=== PATIENT | female | born 1990 | race African-American/Black ===

== ENCOUNTER 2021-12-03 14:05 | Emergency (ER) | payer MEDICAID, SELFPAY ==
[2021-12-03 14:06] VITALS: BP 153/98; PULSE 74; RESP 18; TEMP 36.9; O2SAT 98; BMI 36.9
--- NOTE | 2021-12-03 14:30 | RAD_ITS ---
STUDY: X-RAY - LEFT ELBOW REASON FOR EXAM: Female, 31 years old. INJURY TECHNIQUE: 3 view(s) of the elbow. COMPARISON: None. FINDINGS: Normal visualized humerus, radius and ulna. Normal radiocapitellar and ulnotrochlear articulations. The soft tissue structures are unremarkable. RAD/Elbow min 3 Views IMPRESSION: Normal x-ray examination of the elbow. Electronically Signed: Justino Best MD at 14:50 EDT ,
--- NOTE | 2021-12-03 15:22 | CT_ITS ---
STUDY: CT BRAIN WITHOUT CONTRAST REASON FOR EXAM: Female, 31 years old. trauma, headache RADIATION DOSAGE (If Supplied By Facility): CTDIvol = ( 44.99 ) mGy, DLP = ( 812.98 ) mGycm TECHNIQUE: Transaxial CT imaging of the brain was performed without administration of intravenous contrast material. Individualized dose optimization techniques were used for this CT. COMPARISON: No relevant priors. FINDINGS: Normal soft tissue structures. Normal calvarium. Normal size ventricles and extra-axial spaces for the patient''s age. Normal white matter tracts of the cerebral hemispheres. Normal basal ganglia and thalami. Normal brainstem. Normal cerebellum. There is no intracranial hemorrhage. There are no findings of an acute ischemic infarction. Normal visualized paranasal sinuses. CT/Brain/Head without Contrast IMPRESSION: Normal unenhanced CT scan of the brain. Electronically Signed: Justino Best MD at 16:01 EDT ,
[2021-12-03] MEDS: Diphth,Pertuss(Acell),Tet Vac 0.5 ML Vial IM (15:34)
--- NOTE | 2021-12-03 15:50 | EX.ED.GENINJ ---
HPI History of Present Illness Chief Complaint: Fall Informant: patient Narrative Narrative: Patient tripped and fell over a rock. She landed hitting her left elbow and her head. She states she did not lose consciousness but she was dazed. She just talked to her sister who said she seemed to be a little confused for a while. She had nausea for a while although that is gone. She still has a diffuse headache. No focal neurologic complaints. No neck pain. She has left elbow pain but no left shoulder pain. She has a scrape on her right calf and an abrasion on her left elbow. Tetanus is unknown. PFSH PFSH Medical History no medical history Allergy/AdvReac Type Severity Reaction Status Date / Time No Known Allergies Allergy Verified 12/03/21 14:10 Surgical History no surgical history Social History Smoking Status: Never smoker ROS ROS ED Constitutional Constitutional ED: Denies fever(s) Eyes Eyes: Denies change in vision ENT ENT ED: Denies rhinorrhea Cardiovascular Cardiovascular: Denies chest pain or palpitations Respiratory/Chest Respiratory/Chest: Denies cough or dyspnea Gastrointestinal Gastrointestinal: Reports nausea; Denies abdominal pain, diarrhea or vomiting Genitourinary Genitourinary ED: Denies dysuria or hematuria Musculoskeletal Musculoskeletal: Reports arthralgias; Denies neck pain Integumentary Reports Abrasions Neurologic Neurologic: Reports headache(s); Denies paresthesias or weakness Psychiatric Psychiatric: Denies anxiety Endocrine Endocrinology: Denies polydipsia or polyuria Hematologic/Lymphatic Hematologic/Lymphatic: Denies easy bleeding or easy bruising Allergic/Immunologic Allergic/Immunologic ED: Denies urticaria EXAM Physical Exam Const Vital Signs: 12/03/21 14:06 12/03/21 14:10 Temperature 98.4 F Temperature Source Temporal Pulse Rate 74 Respiratory Rate 18 Respiratory Effort Normal Non-Labored Blood Pressure 153/98 H Blood Pressure Mean 116 Pulse Ox 98 Oxygen Delivery Method Room Air Room Air Positive well nourished and well developed General Appearance ED: well developed and NAD HEENT atraumatic; Negative for trauma Eyes EOMs intact bilaterally Neck full ROM General: Negative for tenderness Chest Wall inspection of chest normal Resp normal respiratory effort and clear to auscultation bilaterally Cardio regular rhythm and no murmurs Rate: regular rate GI normal to inspection, nondistended, normoactive bowel sounds, non-tender and non-distended Back/Spine normal to inspection Back/Spine Narrative: No cervical thoracic or lumbar tenderness. Thoracic Spine / Upper Back: Negative for thoracic spinal tenderness Extremity Extremity Narrative: It is sore to move her left elbow but is not limited. There is an abrasion overlying the olecranon but I cannot get this to open up. It does not appear that we will need suturing. No tenderness shoulder upper humerus forearm wrist or hand. She has a slight abrasion that really does not break the skin on the right posterior calf. Neuro oriented x3, no focal motor deficits and no sensory deficits noted Psych mental status grossly normal Attitude: No agitated Skin Skin Narrative: See above extremity exam MDM MDM MDM Narrative Medical decision making narrative: Elbow x-ray read by me and looked at by radiology shows no acute process. CT is also read as normal. The elbow wound was cleaned. It does not open up. This is not amenable to suturing. I discussed with the patient and her sister reasons to return and signs to look for. Radiography Diagnostic Testing: Clinical Impression(s) from Imaging Studies Elbow X-Ray 12/03/21 14:30 IMPRESSION: Normal x-ray examination of the elbow. Electronically Signed: Justino Best MD at 14:50 EDT Reading Location ID and State: [id number] / [facility] Tel , Service support , Brain CT 12/03/21 15:22 IMPRESSION: Normal unenhanced CT scan of the brain. Electronically Signed: Justino Best MD at 16:01 EDT Reading Location ID and State: [id number] / [facility] Tel , Service support , Discharge Plan Triage Chief Complaint: Fall ED Provider: Ryley Roberto Dx/Rx/DC Orders Clinical Impression: Fall on same level from tripping, Closed head injury, Contusion of elbow, left, Abrasion of elbow, left, Abrasion of right calf Instructions: ED Soft Tissue Contusion, ED Head Injury (Adult) Primary Care Provider: Care Physician,No Primary Referrals: Stacey Wilson DO [Med Staff - [employer]] - 3-5 Days if not improving Care Physician,No Primary [Primary Care Provider] - Disposition Disposition: Home, Self Care
[2021-12-03 16:35] VITALS: BP 150/98; PULSE 72; RESP 15; O2SAT 99
== END 2021-12-03 16:36 | disposition home or self-care (01) ==
PROVIDERS: Emergency Provider Emergency Medicine; Visit Provider Emergency Medicine
DX: S09.90XA Unspecified injury of head, initial encounter (principal); S50.02XA Contusion of left elbow, initial encounter; S50.312A Abrasion of left elbow, initial encounter; S80.811A Abrasion, right lower leg, initial encounter; W01.0XXA Fall on same level from slipping, tripping and stumbling without subsequent striking against object, initial encounter
CPT/HCPCS: 70450; 73080; 90715; 96372; 99283